=== PATIENT | male | born 1995 | race African-American/Black ===

== ENCOUNTER 2017-01-02 15:11 | Emergency (ER) | payer OTHER ==
[~2017-01-02] VITALS: Ht 167.6 cm; Wt 72.3 kg
[2017-01-02 15:22] VITALS: TEMP 37; O2SAT 100; Ht 167.6 cm; Wt 72.3 kg
[2017-01-02 15:51] LABS: BUN/CREATININE RATIO 15.5 (10-20); CALCIUM 8.6 mg/dl (8.5-10.1); POTASSIUM 4.1 mmol/L (3.5-5.1)
[2017-01-02 21:17] VITALS: BP 159/96; PULSE 60; O2SAT 99
--- NOTE | 2017-01-02 22:07 | EMERGENCY ROOM VISIT NOTE ---
ED Visit Note First contact with patient: 15:14 CHIEF COMPLAINT: Altered mental status from Alcohol overdose HISTORY OF PRESENT ILLNESS: This 21 year old male patient presents to the emergency department via ambulance for evaluation of altered mental status, presumably from alcohol intoxication. The patient was reportedly found near [facility] on [place] [employer] without shoes on urinating in public. He was witnessed by police, who placed him in the back of the police car. Patient fell asleep in the back of the car, and EMS was contacted. The patient smells of alcohol. He is pleasant but not answering questions appropriately. He admits to drinking but no drug use. He does not report chronic medical disease. REVIEW OF SYSTEMS: Review of systems was somewhat limited secondary to patient' s presumed alcohol intoxication status. Review of systems was performed to the best of our ability and reperformed as the patient began to sober up. All other systems were reviewed and are negative. ALLERGIES: See EMR MEDICATIONS: See EMR PMH: No reported chronic medical disease SOCIAL HISTORY: Student who lives locally PHYSICAL EXAM VITALS: Vitals are noted on the nurse's note and reviewed by myself. Vital signs stable. GENERAL: Black male, who is in no acute distress and resting comfortably. Patient is visibly altered and smells of alcohol. HEAD: Normocephalic atraumatic. EARS: External ear normal. External auditory canals clear, tympanic membranes pearly rankin without erythema or effusion bilaterally. EYES: Pupils equal round and reactive to light and accommodation. Conjunctivae without injection, sclerae without icterus. Extraocular movements intact. NOSE: Patent, turbinates without inflammation or discharge. MOUTH: Mucous membranes moist. Tonsils are not enlarged. Pharynx without erythema, blood, vomitus, or exudate. Uvula midline. Airway patent. NECK: Supple without nuchal rigidity. No lymphadenopathy. Cervical spine is nontender. HEART: Regular rate and rhythm without murmurs gallops or rubs. LUNGS: Clear to auscultation bilaterally without wheezes, rales or rhonchi. No retractions or accessory muscle use. ABDOMEN: Positive normal bowel sounds x 4. Soft, nontender, without masses or organomegaly. No guarding or rebound tenderness. MUSCULOSKELETAL: No muscle atrophy, erythema, or edema noted. Gross motor function intact to all extremities. NEURO: Patient was alert to person but not place or time. They appear with altered mental status. SKIN: The skin was without rashes, erythema, edema, or bruising. No Tenting of the skin. EMERGENCY DEPARTMENT COURSE: Physical exam and history was performed. Nursing notes and EMR were reviewed. The patient appears to be altered on my examination. I suspect this is from an alcohol overdose. Conservative care measures and aspiration precautions were instituted. The patient was placed on pharmacy specialist and watched during the patient's stay. The patient was placed in a prone position. Blood work was obtained and was reviewed. The patient's blood alcohol level was 313. This appears to be the primary cause of the altered status. Patient was reevaluated multiple times throughout the course of their emergency department stay. Over time the patient did sober up and was able to talk, walk , and drink fluids without difficulty. The patient was felt stable for discharge home. The patient was given alcohol intoxication handouts. The patient was discharged home in stable condition with sober friends. Differential diagnosis: Etiologies such as alcohol intoxication, metabolic, infection, hypoglycemia, electrolyte abnormalities, cardiac sources, intracerebral event, toxicologic, neurologic, as well as others were entertained. Current/Historical Medications Unable to Obtain Active Prescriptions or Reported Meds Vital Signs Date Time Temp Pulse Resp B/P Pulse Ox O2 Delivery O2 Flow Rate FiO2 01/02/17 21:17 60 21 159/96 99 01/02/17 21:09 60 21 159/96 99 Room Air 01/02/17 20:27 54 16 148/101 93 Room Air 01/02/17 20:16 57 9 100 01/02/17 20:11 51 12 100 01/02/17 20:06 54 14 98 01/02/17 20:01 56 13 100 01/02/17 19:59 135/77 01/02/17 19:56 70 19 100 01/02/17 19:51 78 19 99 01/02/17 19:46 74 15 100 01/02/17 19:41 74 10 87 01/02/17 19:37 127/84 01/02/17 19:36 80 21 100 01/02/17 19:32 72 01/02/17 19:26 58 19 100 01/02/17 19:21 65 19 99 01/02/17 19:16 60 13 100 01/02/17 19:11 62 15 100 01/02/17 19:06 76 14 137/78 100 2/25/17 19:01 71 17 97 2/25/17 18:56 74 26 98 2/25/17 18:51 62 16 100 2/25/17 18:46 57 12 99 2/25/17 18:41 66 15 95 2/25/17 18:36 56 12 94 2/25/17 18:31 52 13 93 2/25/17 18:26 61 13 93 2/25/17 18:21 61 16 100 2/25/17 18:16 72 8 100 2/25/17 18:11 51 10 100 2/25/17 18:06 54 12 100 2/25/17 18:01 54 10 100 2/25/17 17:56 68 9 100 2/17 17:51 61 18 2//17 17:46 77 21 92 2/17 17:41 65 16 100 2/17 17:36 64 16 100 2/17 17:31 59 15 98 01/02/17 17:26 58 14 97 2/17 17:21 55 15 100 2/17 17:16 57 15 100 2//17 17:11 54 18 100 2/17 17:06 60 13 100 2/17 17:01 65 15 100 2/17 16:59 86/48 2//17 16:56 71 10 100 2/17 16:51 60 12 100 2/25/17 16:48 92/53 2/25/17 16:46 71 10 100 2/17 16:41 75 18 100 2/17 16:36 69 6 100 2//17 16:31 63 0 100 225/17 16:26 60 0 99 2/25/17 16:21 60 0 98 2/25/17 16:16 58 0 99 2/25/17 16:11 59 0 100 2/25/17 16:06 61 0 99 2/25/17 16:01 59 0 98 2/25/17 15:56 59 0 98 2/25/17 15:51 57 0 98 2/25/17 15:46 60 0 97 2/25/17 15:41 57 0 98 2/25/17 15:36 55 0 97 2/25/17 15:31 55 3 99 2/25/17 15:26 74 6 100 01/02/17 15:24 63 01/02/17 15:22 37.0 78 14 127/69 100 Room Air 01/02/17 15:22 100 Room Air 01/02/17 15:20 127/69 Laboratory Results 01/02/17 15:22 Test 01/02/17 15:22 Anion Gap 9.0 mmol/L (3-11) Est Creatinine Clear Calc Drug Dose 106.3 ml/min Estimated GFR () 125.0 Estimated GFR (Non- 107.9 BUN/Creatinine Ratio 15.5 (10-20) Calcium Level 8.6 mg/dl (8.5-10.1) Ethyl Alcohol mg/dL 313.0 mg/dl (0-3) Departure Information Prescriptions Unable to Obtain Active Prescriptions or Reported Meds Referrals No Doctor, Assigned (PCP) Patient Instructions [facility]
== END 2017-01-02 21:21 | disposition home or self-care (01) ==
LOC: C.EDB 15:15
DX: R41.82 Altered mental status, unspecified (principal)